=== PATIENT | female | born 1995 | race Caucasian/White ===

== ENCOUNTER 2021-07-17 06:09 | Inpatient (IN) | payer OTHER ==
[~2021-07-17] VITALS: Ht 177.8 cm; Wt 85.7 kg
[~2021-07-17 06:09] MED LIST: COLACE 100MG C100 MG PO; IBUPROFEN600 MG PO; SUBUTEX 8 MG TAB8 MG PO
[2021-07-17 07:17] LABS: HEMOGLOBIN 10.8 gm/dl (12.3-15.3); RED BLOOD COUNT 3.78 M/UL (4.00-5.10); WHITE BLOOD COUNT 10.1 K/UL (4.5-11.0)
[2021-07-17] MEDS ORDERED: IBUPROFEN800 MG PO (12:33)
[2021-07-17] MEDS ORDERED: COLACE100 MG PO (12:33)
[2021-07-17] MEDS ORDERED: HEMOCYTE324 MG PO (12:33)
[2021-07-18 05:22] LABS: HEMOGLOBIN 9.1 gm/dl (12.3-15.3)
[2021-07-19] MEDS ORDERED: BUPRENORPHIN-N1 EACH SL (08:23)
== END 2021-07-19 14:12 | disposition home or self-care (01) | DRG 806 ==
LOC: OB 06:09
PROVIDERS: Obstetrics & Gynecology; ADMIT Obstetrics & Gynecology
PROC: 10E0XZZ Delivery of Products of Conception, External Approach (ICD-10-PCS; principal; 2021-07-17)
PROC: 10907ZC Drainage of Amniotic Fluid, Therapeutic from Products of Conception, Via Natural or Artificial Opening (ICD-10-PCS; 2021-07-17)
PROC: 3E033VJ Introduction of Other Hormone into Peripheral Vein, Percutaneous Approach (ICD-10-PCS; 2021-07-17)
PROC: 4A1H7CZ Monitoring of Products of Conception, Cardiac Rate, Via Natural or Artificial Opening (ICD-10-PCS; 2021-07-17)
PROC: 10H073Z Insertion of Monitoring Electrode into Products of Conception, Via Natural or Artificial Opening (ICD-10-PCS; 2021-07-17)
PROC: 10H07YZ Insertion of Other Device into Products of Conception, Via Natural or Artificial Opening (ICD-10-PCS; 2021-07-17)
DX: O48.0 Post-term pregnancy (principal); O99.324 Drug use complicating childbirth; Z37.0 Single live birth; O99.02 Anemia complicating childbirth; D64.9 Anemia, unspecified; O99.824 Streptococcus B carrier state complicating childbirth; Z20.822 Contact with and (suspected) exposure to COVID-19; F19.10 Other psychoactive substance abuse, uncomplicated; Z88.0 Allergy status to penicillin; Z90.49 Acquired absence of other specified parts of digestive tract; Z82.49 Family history of ischemic heart disease and other diseases of the circulatory system; Z87.442 Personal history of urinary calculi; Z87.891 Personal history of nicotine dependence; Z3A.40 40 weeks gestation of pregnancy
CPT/HCPCS: 36415; 80307; 81001; 85014; 85018; 85025; 85461; 86850; 86900; 86901; J0595; J0690; U0002